=== PATIENT | male | born 1945 | race Caucasian/White ===

== ENCOUNTER 2018-04-21 23:05 | Observation (INO) | payer MEDICARE, BC ==
[2018-04-21] MEDS ORDERED: RX INFO: IV CONTRAST WAS GIVEN 1 EACH MISC MISCELLANE PRN (23:48)
[2018-04-21] MEDS ORDERED: SODIUM CHLORIDE 0.9% 1,000 ML IV STA (23:48)
--- NOTE | 2018-04-21 23:58 | ED ---
General Adult HPI - General Chief complaint: Upper Respiratory Infection Stated complaint: coughing up blood Time Seen by Provider: 04/21/18 23:41 Source: patient Mode of arrival: ambulatory Limitations: no limitations - History of Present Illness Initial comments: 72 years old male noticed hemoptysis today at suppertime then now it continued 9 :00 he was coughing he noticed more blood this time around he is on the Plavix and he has been coughing he denies any chest pain as such at night he denies any fever no chills no night sweats no night sweats no weight loss no exposure to anybody with a TB or any contagious diseases. He quit smoking 30 years ago - Related Data Home Medications Medication Instructions Recorded Confirmed ALPRAZolam [Xanax] 0.25 mg PO BID PRN 09/27/16 04/21/18 Atorvastatin [Lipitor] 10 mg PO DAILY 09/27/16 04/21/18 Calcium Polycarbophil [Fibercon] 625 mg PO DAILY 09/27/16 04/21/18 Clopidogrel [Plavix] 75 mg PO DAILY 09/27/16 04/21/18 Diltiazem Cd [Cardizem Cd] 120 mg PO DAILY 09/27/16 04/21/18 Garlic 1 tab PO DAILY 09/27/16 04/21/18 Ipratropium Nebulized [Atrovent 0.5 mg INHALATION RT-QID PRN 09/27/16 04/21/18 Nebulized] Levalbuterol Nebulized [Xopenex 1.25 mg INHALATION RT-QID PRN 09/27/16 04/21/18 Nebulized] Montelukast [Singulair] 10 mg PO DAILY 09/27/16 04/21/18 Niacin 500 mg PO BID 09/27/16 04/21/18 [place]-3 Fatty Acids/Fish Oil [Fish 1 cap PO DAILY 09/27/16 04/21/18 Oil 1,000 mg Softgel] Albuterol Inhaler [Ventolin Hfa 1 - 2 puff INHALATION RT-Q6H PRN 04/21/18 Inhaler] Ascorbic Acid [Vitamin C] 1,000 mg PO DAILY 04/21/18 04/21/18 Fluticasone/Salmeterol [Advair 1 inhalation PO BID 04/21/18 04/21/18 500-50 Diskus] Allergies Allergy/AdvReac Type Severity Reaction Status Date / Time aspirin Allergy Anaphylaxis Verified 04/21/18 23:31 ibuprofen Allergy Anaphylaxis Verified 04/21/18 23:31 influenza virus vaccine qs Allergy Unknown Verified 04/21/18 23:31 2016-17 (36 months up) [From Fluarix Quad 2878-6301 (PF)] Review of Systems ROS Statement: Those systems with pertinent positive or pertinent negative responses have been documented in the HPI. ROS Other: All systems not noted in ROS Statement are negative. Past Medical History Past Medical History: Asthma, Coronary Artery Disease (CAD), Cancer, Chest Pain / Angina, COPD, GERD/Reflux, Hyperlipidemia Additional Past Medical History / Comment(s): sarcoidosis, samtus triad asthma History of Any Multi-Drug Resistant Organisms: None Reported Past Surgical History: Orthopedic Surgery Additional Past Surgical History / Comment(s): right index, nasal , right lower lobe ectomy Past Psychological History: No Psychological Hx Reported Smoking Status: Former smoker Past Alcohol Use History: None Reported Past Drug Use History: None Reported General Exam - General Exam Comments Initial Comments: General: The patient is awake and alert, in no distress, and does not appear acutely ill. Skin: Skin is warm and dry and no rashes or lesions are noted. Eye: Pupils are equal, round and reactive to light, extra-ocular movements are intact; there is normal conjunctiva bilaterally. Ears, nose, mouth and throat: There are moist mucous membranes and no oral lesions. Neck: The neck is supple, there is no tenderness or JVD. Cardiovascular: There is a regular rate and rhythm. No murmur, rub or gallop is appreciated. Respiratory: To auscultation bilateral, noticed crackles at the bases bilateral Gastrointestinal: Soft, non-distended, non-tender abdomen without masses or organomegaly noted. There is no rebound or guarding present. Bowel sounds are unremarkable. Back: There is no tenderness to palpation in the midline. There is no obvious deformity. Musculoskeletal: Normal ROM, no tenderness, There is no pedal edema. There is no calf tenderness or swelling. No cords were appreciated. Neurological: CN II-XII intact, Cranial nerves III through XII are intact. There are no obvious motor or sensory deficits. Coordination appears grossly intact. Speech is normal. Psychiatric: Cooperative, appropriate mood & affect, normal judgment. Limitations: no limitations Course Vital Signs 04/21/18 04/21/18 04/22/18 23:09 23:21 01:04 Temperature 97.8 F Pulse Rate 67 63 Respiratory 18 18 18 Rate Blood Pressure 125/76 123/63 O2 Sat by Pulse 96 95 Oximetry Patient is reassessed at term 1 AM, EKG is unremarkable CBC, INR, troponin, comp his metabolic panel are within normal range his CT chest with IV contrast is pending considering his hemoptysis regardless ER to be admitted for pulmonary evaluation by pulmonary medicine EKG Findings - EKG Comments: EKG Findings:: EKG is normal sinus ventricular rate is 65 NH interval is 172 QRS duration is 88 QT/QTc is 46 02/26/2022 review of this EKG does not reveal any ST elevation or ST depression Medical Decision Making - Lab Data Result diagrams: 04/21/18 23:30 04/21/18 23:30 Lab Results 04/21/18 04/21/18 04/21/18 Range/Units 23:30 23:30 23:30 WBC 13.2 H (3.8-10.6) k/uL RBC 5.01 (4.30-5.90) m/uL Hgb 14.9 (13.0-17.5) gm/dL Hct 45.2 (39.0-53.0) % MCV 90.2 (80.0-100.0) fL MCH 29.8 (25.0-35.0) pg MCHC 33.1 (31.0-37.0) g/dL RDW 12.3 (11.5-15.5) % Plt Count 294 (150-450) k/uL Neutrophils % 50 % Lymphocytes % 31 % Monocytes % 11 % Eosinophils % 4 % Basophils % 1 % Neutrophils # 6.6 (1.3-7.7) k/uL Lymphocytes # 4.1 (1.0-4.8) k/uL Monocytes # 1.4 H (0-1.0) k/uL Eosinophils # 0.5 (0-0.7) k/uL Basophils # 0.1 (0-0.2) k/uL PT (9.0-12.0) sec INR (<1.2) APTT (22.0-30.0) sec Sodium 140 (137-145) mmol/L Potassium 4.4 (3.5-5.1) mmol/L Chloride 105 (98-107) mmol/L Carbon Dioxide 26 (22-30) mmol/L Anion Gap 9 mmol/L BUN 23 H (9-20) mg/dL Creatinine 0.90 (0.66-1.25) mg/dL Est GFR (CKD-EPI)AfAm >90 (>60 ml/min/1.73 sqM) Est GFR (CKD-EPI)NonAf 86 (>60 ml/min/1.73 sqM) Glucose 97 (74-99) mg/dL Calcium 9.4 (8.4-10.2) mg/dL Magnesium 2.0 (1.6-2.3) mg/dL Total Bilirubin 0.2 (0.2-1.3) mg/dL AST 27 (17-59) U/L ALT 38 (21-72) U/L Alkaline Phosphatase 63 (38-126) U/L Total Creatine Kinase 241 H (55-170) U/L CK-MB (CK-2) 3.6 H* (0.0-2.4) ng/mL CK-MB (CK-2) Rel Index 1.5 Troponin I <0.012 (0.000-0.034) ng/mL Total Protein 6.5 (6.3-8.2) g/dL Albumin 4.1 (3.5-5.0) g/dL 04/21/18 Range/Units 23:30 WBC (3.8-10.6) k/uL RBC (4.30-5.90) m/uL Hgb (13.0-17.5) gm/dL Hct (39.0-53.0) % MCV (80.0-100.0) fL MCH (25.0-35.0) pg MCHC (31.0-37.0) g/dL RDW (11.5-15.5) % Plt Count (150-450) k/uL Neutrophils % % Lymphocytes % % Monocytes % % Eosinophils % % Basophils % % Neutrophils # (1.3-7.7) k/uL Lymphocytes # (1.0-4.8) k/uL Monocytes # (0-1.0) k/uL Eosinophils # (0-0.7) k/uL Basophils # (0-0.2) k/uL PT 10.5 (9.0-12.0) sec INR 1.1 (<1.2) APTT 22.8 (22.0-30.0) sec Sodium (137-145) mmol/L Potassium (3.5-5.1) mmol/L Chloride (98-107) mmol/L Carbon Dioxide (22-30) mmol/L Anion Gap mmol/L BUN (9-20) mg/dL Creatinine (0.66-1.25) mg/dL Est GFR (CKD-EPI)AfAm (>60 ml/min/1.73 sqM) Est GFR (CKD-EPI)NonAf (>60 ml/min/1.73 sqM) Glucose (74-99) mg/dL Calcium (8.4-10.2) mg/dL Magnesium (1.6-2.3) mg/dL Total Bilirubin (0.2-1.3) mg/dL AST (17-59) U/L ALT (21-72) U/L Alkaline Phosphatase (38-126) U/L Total Creatine Kinase (55-170) U/L CK-MB (CK-2) (0.0-2.4) ng/mL CK-MB (CK-2) Rel Index Troponin I (0.000-0.034) ng/mL Total Protein (6.3-8.2) g/dL Albumin (3.5-5.0) g/dL Disposition Clinical Impression: Hemoptysis Disposition: ADMITTED IP TO THIS [facility] Condition: Good Referrals: Ghulam Ellis MD [Primary Care Provider] - 1-2 days
[2018-04-22 00:10] LABS: Basophils # (A) 0.1 k/uL (0-0.2); Basophils % (A) 1 %; Eosinophils # (A) 0.5 k/uL (0-0.7); Eosinophils % (A) 4 %; HCT 45.2 % (39.0-53.0); HGB 14.9 gm/dL (13.0-17.5); Lymphocytes # (A) 4.1 k/uL (1.0-4.8); Lymphocytes % (A) 31 %; MCH 29.8 pg (25.0-35.0); MCHC 33.1 g/dL (31.0-37.0); MCV 90.2 fL (80.0-100.0); Mean Platelet Volume 7.5; Monocytes # (A) 1.4 k/uL (0-1.0); Monocytes % (A) 11 %; Neutrophils # (A) 6.6 k/uL (1.3-7.7); Neutrophils % (A) 50 %; Platelet Count 294 k/uL (150-450); RBC 5.01 m/uL (4.30-5.90); RDW 12.3 % (11.5-15.5); WBC 13.2 k/uL (3.8-10.6)
[2018-04-22 00:20] LABS: INR 1.1 (<1.2); Partial Thromboplastin Time 22.8 sec (22.0-30.0); Prothrombin Time 10.5 sec (9.0-12.0)
[2018-04-22 00:31] LABS: ALT 38 U/L (21-72); AST 27 U/L (17-59); Albumin 4.1 g/dL (3.5-5.0); Alkaline Phosphatase 63 U/L (38-126); Anion Gap 9 mmol/L; Blood Urea Nitrogen 23 mg/dL (9-20); Calcium 9.4 mg/dL (8.4-10.2); Carbon Dioxide 26 mmol/L (22-30); Chloride 105 mmol/L (98-107); Glucose 97 mg/dL (74-99); Potassium 4.4 mmol/L (3.5-5.1); Sodium 140 mmol/L (137-145); Total Bilirubin 0.2 mg/dL (0.2-1.3); Total Protein 6.5 g/dL (6.3-8.2)
[2018-04-22 00:36] LABS: Creatine Kinase 241 U/L (55-170)
[2018-04-22 00:49] LABS: Troponin I <0.012 ng/mL (0.000-0.034)
[2018-04-22 00:58] LABS: Creatine Kinase MB 3.6 ng/mL (0.0-2.4)
--- NOTE | 2018-04-22 01:09 | CT ---
EXAMINATION TYPE: CT chest w con DATE OF EXAM: 04/22/2018 COMPARISON: NONE HISTORY: coughing up blood CT DLP: 522.40 mGycm Automated exposure control for dose reduction was used. CONTRAST: CT scan of the chest is performed with IV Contrast, patient injected with 100 mL of Isovue 300. FINDINGS: The lungs are clear of consolidation. There is some blunting of right costophrenic angle. There is no pleural effusion. There is mild reticular density at the left posterior lung base. There are multipl e paratracheal and bronchial lymph nodes. These measure up to 1.5 cm. There is no evidence of thoraci c aortic aneurysm or dissection. Heart size is normal. There is no pericardial effusion. There are ap parent surgical clips at the right pulmonary hilum. There is appears to be resection of a significant amount of the right lower lobe. There could be complete right lower lobectomy. There is spurring in the thoracic spine. There is mild anterior wedging of a midthoracic vertebra. This is seen at T9 and T8 with up to 15% loss of height. IMPRESSION: There is peritracheal and bronchial adenopathy. Right lower lobectomy. Mild pleural reac tion at the lateral right lung base. Calcified gallstones are noted. There are probably renal parapel lety cysts.
[2018-04-22] MEDS ORDERED: ACETAMINOPHEN TAB 325 MG TAB PO PRN (01:10)
[2018-04-22] MEDS ORDERED: NALOXONE 0.4 MG/ML 1 ML VIAL IV PRN (01:10)
[2018-04-22] MEDS ORDERED: ONDANSETRON 4 MG/2 ML VIAL IVP PRN (01:10)
[2018-04-22] MEDS ORDERED: ALPRAZolam 0.25 MG TAB PO PRN (01:14)
[2018-04-22] MEDS ORDERED: IPRATROPIUM 0.5 MG/2.5 ML NEBU INHALATION PRN (01:14)
[2018-04-22] MEDS ORDERED: ALBUTEROL NEBULIZED 2.5 MG/3 ML INHALATION PRN (01:14)
[2018-04-22] MEDS ORDERED: ALBUTEROL NEB (CONC) 2.5 MG/0.5 ML INHALATION PRN (01:14)
[2018-04-22 01:57] VITALS: BMI 29.5
[2018-04-22] MEDS: SYMBICORT 160-4.5 MCG INHALER INHALATION SCH ×2 (07:47→19:51)
[2018-04-22] MEDS: ATORVASTATIN 10 MG TAB PO SCH (08:08)
[2018-04-22] MEDS: ASCORBIC ACID 500 MG TAB PO SCH (08:08)
[2018-04-22] MEDS: DILTIAZEM CD 120 MG CAP.ER.24H PO SCH (08:08)
[2018-04-22] MEDS: NIACIN TR 500 MG CAPSULE.ER PO SCH ×2 (08:08→19:59)
[2018-04-22] MEDS: NON-FORMULARY DRUG (Garlic [Garlic] 1 TAB) PO SCH (08:08)
[2018-04-22] MEDS: MONTELUKAST 10 MG TAB PO SCH (08:08)
[2018-04-22] MEDS: CALCIUM POLYCARBOPHIL 625 MG TAB PO SCH (08:08)
[2018-04-22] MEDS: NON-FORMULARY DRUG (Omega-3 Fatty Acids/Fish Oil [Fish Oil 1,000 Mg Softgel] 1 CAP) PO SCH (08:09)
--- NOTE | 2018-04-22 14:36 | P.CNPUL ---
History of Present Illness Consult date: 04/22/18 Requesting physician: Tyshawn Jose Reason for consult: other Chief complaint: Hemoptysis History of present illness: Mr. Pan is a 72-year-old white male patient follows with MILY Kulkarni , in Dr. Ellis office, who presented to the emergency department on 04/21/2018 at 2353 with complaints of hemoptysis. At around 5:30 in the afternoon on 04/21 patient started coughing, and did a quarter size amount of bright red blood mixed with phlegm. Denies any chest pain, denied any shortness of breath , denied any fever or chills, denied chest congestion. Denied any weight loss, denied any exposure to any contagious diseases. He is an ex-smoker, he quit smoking 30 years ago, but smoked for 15 years of less than a pack a day prior to that. He is on Plavix, no other blood thinners. Other history includes aspirin-sensitive asthma, which has been under good control, and has not had an exacerbation in over a year. Was previously on Advair, however his insurance stopped paying for it and he had been off of it. His asthma has been under control despite that, patient is on Xopenex and Atrovent nebulized treatments, and he has inhaler. He sees Dr. Spencer for his history of mild intermittent asthma, he has a past medical history of sarcoidosis which has been inactive, history of lung cancer, likely non-small cell, with a right lower lobe resection [place] [address] Camargo. And the patient did not require any radiation or chemo following right lower lobe resection. Patient has a history of chronic sinusitis, hypertension, and history of peptic ulcer disease, with GI bleeding in 1990. His PFT from 10/09/2017 showed FEV1 of 57% of predicted, post bronchodilator response was FEV1 of 64% of predicted, DLCO was 93%. FEV1 to FVC ratio was 95%, and this was consistent with moderately severe obstructive airways disease with a possible restrictive defect. CT chest with contrast was completed, and showed lungs clear of consolidation, there were multiple paratracheal and bronchial lymph nodes measuring up to 1.5 cm, there was evidence of previous right lower lobe resection with surgical clips at the right pulmonary hilum. Vital signs have been stable, patient has been afebrile , he is on room air with a pulse ox of 95%, normotensive. Heart rate is controlled in the 60s BPM. EKG showed normal sinus rhythm. Lab work showed a CBC of 13.9, hemoglobin is 14.9, coagulation profile was within normal limits, electrolytes were normal, B1 is 23, creatinine was 0.90. LFTs were normal, total CK was 241, CK-MB was 3.6, troponins was negative 1, influenza screen was negative. Patient was seen in the observation unit, and were consulted in regards to hemoptysis, and patient is calm and comfortable, denies any acute distress. He had a small amount of hemoptysis this morning, sizable quarter, with old dark blood. Review of Systems All systems: negative Constitutional: Denies chills, Denies fever Eyes: denies blurred vision, denies pain Ears, nose, mouth and throat: Denies headache, Denies sore throat Cardiovascular: Denies chest pain, Denies shortness of breath Respiratory: Reports cough with sputum, Reports hemoptysis, Denies cough Gastrointestinal: Denies abdominal pain, Denies diarrhea, Denies nausea, Denies vomiting Musculoskeletal: Denies myalgias Integumentary: Denies pruritus, Denies rash Neurological: Denies numbness, Denies weakness Psychiatric: Denies anxiety, Denies depression Endocrine: Denies fatigue, Denies weight change Past Medical History Past Medical History: Asthma, Coronary Artery Disease (CAD), Cancer, Chest Pain / Angina, COPD, GERD/Reflux, GI Bleed, Hyperlipidemia, Rheumatoid Arthritis (RA) Additional Past Medical History / Comment(s): sarcoidosis, Samter's triad asthma , bleeding ulcer 1990 History of Any Multi-Drug Resistant Organisms: None Reported Past Surgical History: Heart Catheterization, Orthopedic Surgery Additional Past Surgical History / Comment(s): right index, nasal , right lower lobe ectomy, heart cath 2009-no blockages Past Anesthesia/Blood Transfusion Reactions: No Reported Reaction Past Psychological History: No Psychological Hx Reported Smoking Status: Former smoker Past Alcohol Use History: None Reported Past Drug Use History: None Reported - Past Family History Father Family Medical History: Diabetes Mellitus Mother Family Medical History: Coronary Artery Disease (CAD) Medications and Allergies Home Medications Medication Instructions Recorded Confirmed Type ALPRAZolam [Xanax] 0.25 mg PO BID PRN 09/27/16 04/22/18 History Atorvastatin [Lipitor] 10 mg PO DAILY 09/27/16 04/22/18 History Calcium Polycarbophil [Fibercon] 625 mg PO DAILY 09/27/16 04/22/18 History Clopidogrel [Plavix] 75 mg PO DAILY 09/27/16 04/22/18 History Diltiazem Cd [Cardizem Cd] 120 mg PO DAILY 09/27/16 04/22/18 History Garlic 1 tab PO DAILY 09/27/16 04/22/18 History Ipratropium Nebulized [Atrovent 0.5 mg INHALATION RT-QID PRN 09/27/16 04/22/18 History Nebulized] Levalbuterol Nebulized [Xopenex 1.25 mg INHALATION RT-QID PRN 09/27/16 04/22/18 History Nebulized] Montelukast [Singulair] 10 mg PO DAILY 09/27/16 04/22/18 History Niacin 500 mg PO BID 09/27/16 04/22/18 History [place]-3 Fatty Acids/Fish Oil [Fish 1 cap PO DAILY 09/27/16 04/22/18 History Oil 1,000 mg Softgel] Albuterol Inhaler [Ventolin Hfa 1 - 2 puff INHALATION RT-Q6H PRN 04/21/18 History Inhaler] Ascorbic Acid [Vitamin C] 1,000 mg PO DAILY 04/21/18 04/22/18 History Fluticasone/Salmeterol [Advair 1 inhalation PO BID 04/21/18 04/22/18 History 500-50 Diskus] Allergies Allergy/AdvReac Type Severity Reaction Status Date / Time aspirin Allergy Anaphylaxis Verified 04/21/18 23:31 ibuprofen Allergy Anaphylaxis Verified 04/21/18 23:31 influenza virus vaccine qs Allergy Unknown Verified 04/21/18 23:31 2015- (36 months up) [From Fluarix Quad 3996-6840 (PF)] Physical Exam Vitals: Vital Signs Temp Pulse Pulse Resp BP BP Pulse Ox 04/22/18 11:19 16 04/22/18 08:00 16 04/22/18 07:15 97.8 F 61 18 108/70 95 04/22/18 04:00 62 18 04/22/18 02:20 68 18 04/22/18 01:52 97.7 F 61 16 128/76 97 04/22/18 01:04 63 18 123/63 95 04/21/18 23:21 18 04/21/18 23:09 97.8 F 67 18 125/76 96 Intake and Output 04/21/18 04/22/18 04/22/18 22:59 06:59 14:59 Intake Total 800 420 Balance 800 420 Intake: Intake, IV Titration 600 Amount Sodium Chloride 0.9% 1, 600 000 ml @ 100 mls/hr IV . Q10H STA Rx#:[id number] Oral 200 420 Other: Voiding Method Toilet # Voids 2 Weight 96.1 kg GENERAL EXAM: Alert, pleasant, 72-year-old white male, comfortable in no apparent distress. HEAD: Normocephalic/atraumatic. EYES: Normal reaction of pupils, equal size. Conjunctiva pink, sclera white. NOSE: Clear with pink turbinates. THROAT: No erythema or exudates. NECK: No masses, no JVD, no thyroid enlargement, no adenopathy. CHEST: No chest wall deformity. Symmetrical expansion. LUNGS: Equal air entry with bibasilar crackles, no wheezing noted CVS: Regular rate and rhythm, normal S1 and S2, no gallops, no murmurs, no rubs ABDOMEN: Soft, nontender. No hepatosplenomegaly, normal bowel sounds, no guarding or rigidity. EXTREMITIES: No clubbing, no edema, no cyanosis, 2+ pulses and upper and lower extremities. MUSCULOSKELETAL: Muscle strength and tone normal. SPINE: No scoliosis or deformity SKIN: No rashes CENTRAL NERVOUS SYSTEM: Alert and oriented -3. No focal deficits, tone is normal in all 4 extremities. PSYCHIATRIC: Alert and oriented -3. Appropriate affect. Intact judgment and insight. Results - Laboratory Findings CBC and BMP: 04/21/18 23:30 04/21/18 23:30 PT/INR, D-dimer PT 10.5 sec (9.0-12.0) 04/21/18 23:30 INR 1.1 (<1.2) 04/21/18 23:30 Abnormal lab findings: Abnormal Labs 04/21/18 04/21/18 04/21/18 23:30 23:30 23:30 WBC 13.2 H Monocytes # 1.4 H BUN 23 H Total Creatine Kinase 241 H CK-MB (CK-2) 3.6 H* - Diagnostic Findings Chest x-ray: report reviewed, image reviewed Additional studies: EKG was reviewed Assessment and Plan Plan: Assessment: #1. Hemoptysis, under investigation. Patient reports small amount of bright red colored sputum size of a dime prior to admission, and again today which was dark colored, this could be related to bronchial wall inflammation, or vigorous coughing which could have caused a small blood vessel to burst and bleed in the airways. CT chest did show multiple paratracheal and bronchial adenopathy measuring up to 1.5 cm, no lung masses were seen. This could be followed on an outpatient basis with the repeat CT chest. Patient denies any other constitutional symptoms, no weight loss, no persistent cough, no chest wall tenderness, no dyspnea, no night sweats, no fever, no chills #2. History of mild intermittent asthma, under good control. This is aspirin sensitive asthma #3. History of sarcoidosis, inactive #4. History of lung cancer, likely non-small cell lung cancer, the details are not available, the patient had right lower lobe resection [place] [address] Camargo #5. History of chronic sinusitis #6. Hypertension #7. Peptic ulcer disease, patient had a bleeding ulcer in 1990 #8. History of remote nicotine dependence, patient quit 30 years ago, and smoked for a period of 15 years of less than a pack a day Plan: Patient was given an option to proceed with a bronchoscopy for inspection of airways, possibly tomorrow. Another option would be to continue surveillance of the tracheal and bronchial adenopathy with the repeat CT chest on outpatient basis always the hemoptysis is not recurring or intensifying. The amount of hemoptysis was small, it could possibly be related to forceful coughing and break of one of the blood vessels in the airways, or from the bronchial inflammation. We will start the patient on IV Solu-Medrol, and Zithromax. Continue monitoring for recurrence of hemoptysis, or worsening of his symptoms, and for now patient is stable, denies any dyspnea, denies any chest pain, vitals are stable. This was discussed with the patient, who would like to wait with the bronchoscopy for now, and treat medically for now as long as his symptoms are not worsening. I performed a history & physical examination of the patient and discussed their management with my nurse practitioner, Angelina Hmyan. I reviewed the nurse practitioner's note and agree with the documented findings and plan of care. Lung sounds are positive for coarse crackles in bilateral bases. The findings and the impression was discussed with the patient. I attest to the documentation by the nurse practitioner. Time with Patient: Greater than 30
--- NOTE | 2018-04-22 14:48 | P.HPIM ---
History of Present Illness 72-year-old gentleman with history of lung cancer in the past with right lower lobectomy came in with comments of hemoptysis shortness of breath patient up on exam has minimal wheezing patient does have history of COPD patient is being treated for bronchitis and patient is a pleasantly and azithromycin was evaluated by pulmonary. Patient does have FEV1 of 64%. Patient takes Plavix at home. Patient does not have any cerebrovascular or coronary vascular disease may not need any antiplatelet therapy at this time. Patient is also on systemic steroids which was started by pulmonology. Patient does have paratracheal lymphadenopathy on the CAT scan which will need a repeat CAT scan as an outpatient that will be followed by pulmonology as an as an outpatient. Patient's hemoptysis improved. Patient is much less short of breath Review of Systems REVIEW OF SYSTEMS: CONSTITUTIONAL: No fever, no malaise, no fatigue. HEENT: No recent visual problems or hearing problems. Denied any sore throat. CARDIOVASCULAR: No chest pain, orthopnea, PND, no palpitations, no syncope. PULMONARY: Hemoptysis as mentioned above GASTROINTESTINAL: No diarrhea, no nausea, no vomiting, no abdominal pain. Normoactive bowel sounds. NEUROLOGICAL: No headaches, no weakness, no numbness. HEMATOLOGICAL: Denies any bleeding or petechiae. GENITOURINARY: Denies any burning micturition, frequency, or urgency. MUSCULOSKELETAL/RHEUMATOLOGICAL: Denies any joint pain, swelling, or any muscle pain. ENDOCRINE: Denies any polyuria or polydipsia. The rest of the 14-point review of systems is negative. Past Medical History Past Medical History: Asthma, Coronary Artery Disease (CAD), Cancer, Chest Pain / Angina, COPD, GERD/Reflux, GI Bleed, Hyperlipidemia, Rheumatoid Arthritis (RA) Additional Past Medical History / Comment(s): sarcoidosis, Samter's triad asthma , bleeding ulcer 1990 History of Any Multi-Drug Resistant Organisms: None Reported Past Surgical History: Heart Catheterization, Orthopedic Surgery Additional Past Surgical History / Comment(s): right index, nasal , right lower lobe ectomy, heart cath 2009-no blockages Past Anesthesia/Blood Transfusion Reactions: No Reported Reaction Past Psychological History: No Psychological Hx Reported Smoking Status: Former smoker Past Alcohol Use History: None Reported Past Drug Use History: None Reported - Past Family History Father Family Medical History: Diabetes Mellitus Mother Family Medical History: Coronary Artery Disease (CAD) Medications and Allergies Home Medications Medication Instructions Recorded Confirmed Type ALPRAZolam [Xanax] 0.25 mg PO BID PRN 09/27/16 04/22/18 History Atorvastatin [Lipitor] 10 mg PO DAILY 09/27/16 04/22/18 History Calcium Polycarbophil [Fibercon] 625 mg PO DAILY 09/27/16 04/22/18 History Clopidogrel [Plavix] 75 mg PO DAILY 09/27/16 04/22/18 History Diltiazem Cd [Cardizem Cd] 120 mg PO DAILY 09/27/16 04/22/18 History Garlic 1 tab PO DAILY 09/27/16 04/22/18 History Ipratropium Nebulized [Atrovent 0.5 mg INHALATION RT-QID PRN 09/27/16 04/22/18 History Nebulized] Levalbuterol Nebulized [Xopenex 1.25 mg INHALATION RT-QID PRN 09/27/16 04/22/18 History Nebulized] Montelukast [Singulair] 10 mg PO DAILY 09/27/16 04/22/18 History Niacin 500 mg PO BID 09/27/16 04/22/18 History [place]-3 Fatty Acids/Fish Oil [Fish 1 cap PO DAILY 09/27/16 04/22/18 History Oil 1,000 mg Softgel] Albuterol Inhaler [Ventolin Hfa 1 - 2 puff INHALATION RT-Q6H PRN 04/21/18 History Inhaler] Ascorbic Acid [Vitamin C] 1,000 mg PO DAILY 04/21/18 04/22/18 History Fluticasone/Salmeterol [Advair 1 inhalation PO BID 04/21/18 04/22/18 History 500-50 Diskus] Allergies Allergy/AdvReac Type Severity Reaction Status Date / Time aspirin Allergy Anaphylaxis Verified 04/21/18 23:31 ibuprofen Allergy Anaphylaxis Verified 04/21/18 23:31 influenza virus vaccine qs Allergy Unknown Verified 04/21/18 23:31 2015- (36 months up) [From Fluarix Quad 3562-5362 (PF)] Physical Exam Vitals: Vital Signs Temp Pulse Pulse Resp BP BP Pulse Ox 04/22/18 11:19 16 04/22/18 08:00 16 04/22/18 07:15 97.8 F 61 18 108/70 95 04/22/18 04:00 62 18 04/22/18 02:20 68 18 04/22/18 01:52 97.7 F 61 16 128/76 97 04/22/18 01:04 63 18 123/63 95 04/21/18 23:21 18 04/21/18 23:09 97.8 F 67 18 125/76 96 Intake and Output 04/21/18 04/22/18 04/22/18 22:59 06:59 14:59 Intake Total 800 420 Balance 800 420 Intake: Intake, IV Titration 600 Amount Sodium Chloride 0.9% 1, 600 000 ml @ 100 mls/hr IV . Q10H STA Rx#:[id number] Oral 200 420 Other: Voiding Method Toilet # Voids 2 Weight 96.1 kg PHYSICAL EXAMINATION: GENERAL: The patient is alert and oriented x3, not in any acute distress. Well developed, well nourished. HEENT: Pupils are round and equally reacting to light. EOMI. No scleral icterus. No conjunctival pallor. Normocephalic, atraumatic. No pharyngeal erythema. No thyromegaly. CARDIOVASCULAR: S1 and S2 present. No murmurs, rubs, or gallops. PULMONARY: Minimal expiratory wheezing, decreased air entry into bilateral lung chi. ABDOMEN: Soft, nontender, nondistended, normoactive bowel sounds. No palpable organomegaly. MUSCULOSKELETAL: No joint swelling or deformity. EXTREMITIES: No cyanosis, clubbing, or pedal edema. NEUROLOGICAL: Gross neurological examination did not reveal any focal deficits. SKIN: No rashes. Results CBC & Chem 7: 04/21/18 23:30 04/21/18 23:30 Labs: Abnormal Lab Results - Last 24 Hours (Table) 04/21/18 04/21/18 04/21/18 Range/Units 23:30 23:30 23:30 WBC 13.2 H (3.8-10.6) k/uL Monocytes # 1.4 H (0-1.0) k/uL BUN 23 H (9-20) mg/dL Total Creatine Kinase 241 H (55-170) U/L CK-MB (CK-2) 3.6 H* (0.0-2.4) ng/mL Thrombosis Risk Factor Assmnt - Choose All That Apply Each Risk Factor Represents 2 Points: Age 61-74 years Thrombosis Risk Factor Assessment Total Risk Factor Score: 2 Thrombosis Risk Factor Assessment Level: Low Risk Assessment and Plan Plan: -Hemoptysis probably secondary to bronchitis patient does have paratracheal lymphadenopathy which will be evaluated further as an outpatient with repeat CAT scan of the chest pulmonology valid the patient continue with the systemic strides antibiotics -Chronic intermittent asthma: Aspirin sensitive asthma -History of sarcoidosis -History of lung cancer non-small cell status post right lower lobectomy so far in remission. -Chronic sinusitis -Hypertension -Peptic ulcer disease
[2018-04-22] MEDS: methylPREDNISolone SOD SUCCI 125 MG/2 ML VIAL IV SCH ×2 (14:55→17:04)
[2018-04-22] MEDS: AZITHROMYCIN 500 MG TAB PO SCH (14:55)
[2018-04-22 16:01] VITALS: RESP 18; TEMP 97.4
[2018-04-23] MEDS: methylPREDNISolone SOD SUCCI 125 MG/2 ML VIAL IV SCH ×3 (00:15→11:48)
[2018-04-23 05:51] VITALS: BP 142/82; PULSE 106
[2018-04-23 07:13] LABS: Basophils % (A) 0 %; Eosinophils % (A) 0 %; HCT 48.4 % (39.0-53.0); HGB 15.9 gm/dL (13.0-17.5); Lymphocytes # (A) 1.6 k/uL (1.0-4.8); Lymphocytes % (A) 9 %; MCHC 32.8 g/dL (31.0-37.0); MCV 91.4 fL (80.0-100.0); Mean Platelet Volume 7.8; Monocytes # (A) 0.3 k/uL (0-1.0); Monocytes % (A) 2 %; Neutrophils # (A) 15.6 k/uL (1.3-7.7); Neutrophils % (A) 89 %; Platelet Count 325 k/uL (150-450); RDW 12.7 % (11.5-15.5); WBC 17.6 k/uL (3.8-10.6)
[2018-04-23] MEDS: SYMBICORT 160-4.5 MCG INHALER INHALATION SCH (08:28)
[2018-04-23] MEDS: NIACIN TR 500 MG CAPSULE.ER PO SCH (09:31)
[2018-04-23] MEDS: ASCORBIC ACID 500 MG TAB PO SCH (09:31)
[2018-04-23] MEDS: AZITHROMYCIN 500 MG TAB PO SCH (09:31)
[2018-04-23] MEDS: NON-FORMULARY DRUG (Omega-3 Fatty Acids/Fish Oil [Fish Oil 1,000 Mg Softgel] 1 CAP) PO SCH (09:31)
[2018-04-23] MEDS: CALCIUM POLYCARBOPHIL 625 MG TAB PO SCH (09:31)
[2018-04-23] MEDS: ATORVASTATIN 10 MG TAB PO SCH (09:31)
[2018-04-23] MEDS: MONTELUKAST 10 MG TAB PO SCH (09:31)
[2018-04-23] MEDS: NON-FORMULARY DRUG (Garlic [Garlic] 1 TAB) PO SCH (09:31)
[2018-04-23] MEDS: DILTIAZEM CD 120 MG CAP.ER.24H PO SCH (09:31)
--- NOTE | 2018-04-23 10:32 | P.DS ---
Providers Date of admission: 04/22/18 01:10 Attending physician: Tyshawn Jose Consults: 04/22/18 01:10 Consult Physician Stat Consulting Provider: Mary Jo Andrews Reason/Comments: hemoptysis Do you want consulting provider notified?: Yes Primary care physician: Ghulam Caleb [facility] Course: Patient was admitted secondary to hemoptysis which is believed secondary to bronchitis and patient does have some COPD exacerbation the patient is cleared by a pulmonary patient will be discharged today he still has some wheeze but the clinically looks okay. Patient is not wearing oxygen at this time. Patient does have paratracheal lymphadenopathy which will be followed as an outpatient by pulmonary. Patient does have right lower pulmonary lobectomy for his previous history of non-small cell lung cancer. His hemoptysis resolved. If hemoptysis recurs patient was asked to hold off his Plavix. Patient does not have any history of cigarettes per accident, coronary vascular disease or peripheral vascular disease history. PHYSICAL EXAMINATION: GENERAL: The patient is alert and oriented x3, not in any acute distress. Well developed, well nourished. HEENT: Pupils are round and equally reacting to light. EOMI. No scleral icterus. No conjunctival pallor. Normocephalic, atraumatic. No pharyngeal erythema. No thyromegaly. CARDIOVASCULAR: S1 and S2 present. No murmurs, rubs, or gallops. PULMONARY: Minimal expiratory wheezing, decreased air entry into bilateral lung chi. ABDOMEN: Soft, nontender, nondistended, normoactive bowel sounds. No palpable organomegaly. MUSCULOSKELETAL: No joint swelling or deformity. EXTREMITIES: No cyanosis, clubbing, or pedal edema. NEUROLOGICAL: Gross neurological examination did not reveal any focal deficits. SKIN: No rashes. Assessment and Plan Plan: -Hemoptysis probably secondary to bronchitis patient does have paratracheal lymphadenopathy which will be evaluated further as an outpatient with repeat CAT scan of the chest pulmonology evaluated the patient. -Chronic intermittent asthma: Aspirin sensitive asthma -History of sarcoidosis -History of lung cancer non-small cell status post right lower lobectomy so far in remission. -Chronic sinusitis -Hypertension -Peptic ulcer disease Patient Condition at Discharge: Good Plan - Discharge Summary Discharge Rx Participant: No New Discharge Prescriptions: New Azithromycin [Zithromax] 500 mg PO DAILY #4 tab predniSONE 10 mg PO DAILY #30 tab Continue Ipratropium Nebulized [Atrovent Nebulized] 0.5 mg INHALATION RT-QID PRN PRN Reason: Shortness Of Breath Levalbuterol Nebulized [Xopenex Nebulized] 1.25 mg INHALATION RT-QID PRN PRN Reason: breathing Calcium Polycarbophil [Fibercon] 625 mg PO DAILY Diltiazem Cd [Cardizem CD] 120 mg PO DAILY Clopidogrel [Plavix] 75 mg PO DAILY ALPRAZolam [Xanax] 0.25 mg PO BID PRN PRN Reason: Anxiety Montelukast [Singulair] 10 mg PO DAILY Atorvastatin [Lipitor] 10 mg PO DAILY [place]-3 Fatty Acids/Fish Oil [Fish Oil 1,000 mg Softgel] 1 cap PO DAILY Niacin 500 mg PO BID Garlic 1 tab PO DAILY Fluticasone/Salmeterol [Advair 500-50 Diskus] 1 inhalation PO BID Albuterol Inhaler [Ventolin Hfa Inhaler] 1 - 2 puff INHALATION RT-Q6H PRN PRN Reason: Shortness Of Breath Ascorbic Acid [Vitamin C] 1,000 mg PO DAILY Discharge Medication List ALPRAZolam [Xanax] 0.25 mg PO BID PRN 09/27/16 [History] Atorvastatin [Lipitor] 10 mg PO DAILY 09/27/16 [History] Calcium Polycarbophil [Fibercon] 625 mg PO DAILY 09/27/16 [History] Clopidogrel [Plavix] 75 mg PO DAILY 09/27/16 [History] Diltiazem Cd [Cardizem CD] 120 mg PO DAILY 09/27/16 [History] Garlic 1 tab PO DAILY 09/27/16 [History] Ipratropium Nebulized [Atrovent Nebulized] 0.5 mg INHALATION RT-QID PRN [History] Levalbuterol Nebulized [Xopenex Nebulized] 1.25 mg INHALATION RT-QID PRN [History] Montelukast [Singulair] 10 mg PO DAILY 09/27/16 [History] Niacin 500 mg PO BID 09/27/16 [History] [place]-3 Fatty Acids/Fish Oil [Fish Oil 1,000 mg Softgel] 1 cap PO DAILY [History] Albuterol Inhaler [Ventolin Hfa Inhaler] 1 - 2 puff INHALATION RT-Q6H PRN [History] Ascorbic Acid [Vitamin C] 1,000 mg PO DAILY 04/21/18 [History] Fluticasone/Salmeterol [Advair 500-50 Diskus] 1 inhalation PO BID 04/21/18 [ History] Azithromycin [Zithromax] 500 mg PO DAILY #4 tab 04/23/18 [Rx] predniSONE 10 mg PO DAILY #30 tab 04/23/18 [Rx] Follow up Appointment(s)/Referral(s): Ghulam Ellis MD [Primary Care Provider] - 3 Days Discharge Disposition: HOME SELF-CARE
--- NOTE | 2018-04-23 10:49 | P.PN ---
Subjective Progress Note Date: 04/23/18 Principal diagnosis: Hemoptysis, likely related to bronchial inflammation Mr. Pan is a 72-year-old white male patient follows with MILY Kulkarni , in Dr. Ellis office, who presented to the emergency department on 04/21/2018 at 2353 with complaints of hemoptysis. At around 5:30 in the afternoon on 04/21 patient started coughing, and did a quarter size amount of bright red blood mixed with phlegm. Denies any chest pain, denied any shortness of breath , denied any fever or chills, denied chest congestion. Denied any weight loss, denied any exposure to any contagious diseases. He is an ex-smoker, he quit smoking 30 years ago, but smoked for 15 years of less than a pack a day prior to that. He is on Plavix, no other blood thinners. Other history includes aspirin-sensitive asthma, which has been under good control, and has not had an exacerbation in over a year. Was previously on Advair, however his insurance stopped paying for it and he had been off of it. His asthma has been under control despite that, patient is on Xopenex and Atrovent nebulized treatments, and he has inhaler. He sees Dr. Spencer for his history of mild intermittent asthma, he has a past medical history of sarcoidosis which has been inactive, history of lung cancer, likely non-small cell, with a right lower lobe resection [place] [address] Camargo. And the patient did not require any radiation or chemo following right lower lobe resection. Patient has a history of chronic sinusitis, hypertension, and history of peptic ulcer disease, with GI bleeding in 1990. His PFT from 10/09/2017 showed FEV1 of 57% of predicted, post bronchodilator response was FEV1 of 64% of predicted, DLCO was 93%. FEV1 to FVC ratio was 95%, and this was consistent with moderately severe obstructive airways disease with a possible restrictive defect. CT chest with contrast was completed, and showed lungs clear of consolidation, there were multiple paratracheal and bronchial lymph nodes measuring up to 1.5 cm, there was evidence of previous right lower lobe resection with surgical clips at the right pulmonary hilum. Vital signs have been stable, patient has been afebrile , he is on room air with a pulse ox of 95%, normotensive. Heart rate is controlled in the 60s BPM. EKG showed normal sinus rhythm. Lab work showed a CBC of 13.9, hemoglobin is 14.9, coagulation profile was within normal limits, electrolytes were normal, B1 is 23, creatinine was 0.90. LFTs were normal, total CK was 241, CK-MB was 3.6, troponins was negative 1, influenza screen was negative. Patient was seen in the observation unit, and were consulted in regards to hemoptysis, and patient is calm and comfortable, denies any acute distress. He had a small amount of hemoptysis this morning, sizable quarter, with old dark blood. On 04/23/2018 patient seen again in follow-up on medical surgical floor. He had another couple of small bloody specks in his phlegm yesterday in the afternoon, nothing since. Vital signs are stable, patient states his sinuses are less congested. No chest congestion, no no cough. Remainder pulse ox is 94 %, yesterday we started patient on IV steroids, and antibiotics. And patient is feeling better today, with no recurrence of his hemoptysis. Pulmonary standpoint patient is stable for discharge home today Objective - Vital Signs Vital signs: Vital Signs Temp 97.4 F L 04/23/18 05:50 Pulse 106 H 04/23/18 08:00 Resp 18 04/23/18 08:00 BP 142/82 04/23/18 05:50 Pulse Ox 94 L 04/23/18 05:50 Intake & Output 04/22/18 04/23/18 04/23/18 18:59 06:59 18:59 Intake Total 820 480 Balance 820 480 Weight 96.1 kg Intake: Oral 420 480 Other 400 Other: Voiding Method Toilet Toilet Toilet # Voids 1 1 - Exam GENERAL EXAM: Alert, pleasant, 72-year-old white male, comfortable in no apparent distress. HEAD: Normocephalic/atraumatic. EYES: Normal reaction of pupils, equal size. Conjunctiva pink, sclera white. NOSE: Clear with pink turbinates. THROAT: No erythema or exudates. NECK: No masses, no JVD, no thyroid enlargement, no adenopathy. CHEST: No chest wall deformity. Symmetrical expansion. LUNGS: Equal air entry with bibasilar crackles, no wheezing noted CVS: Regular rate and rhythm, normal S1 and S2, no gallops, no murmurs, no rubs ABDOMEN: Soft, nontender. No hepatosplenomegaly, normal bowel sounds, no guarding or rigidity. EXTREMITIES: No clubbing, no edema, no cyanosis, 2+ pulses and upper and lower extremities. MUSCULOSKELETAL: Muscle strength and tone normal. SPINE: No scoliosis or deformity SKIN: No rashes CENTRAL NERVOUS SYSTEM: Alert and oriented -3. No focal deficits, tone is normal in all 4 extremities. PSYCHIATRIC: Alert and oriented -3. Appropriate affect. Intact judgment and insight. - Labs CBC & Chem 7: 04/23/18 06:13 04/21/18 23:30 Labs: Abnormal Lab Results - Last 24 Hours (Table) 04/23/18 Range/Units 06:13 WBC 17.6 H (3.8-10.6) k/uL Neutrophils # 15.6 H (1.3-7.7) k/uL Assessment and Plan Plan: Assessment: #1. Hemoptysis, under investigation. Patient reports small amount of bright red colored sputum size of a dime prior to admission, and again today which was dark colored, this could be related to bronchial wall inflammation, or vigorous coughing which could have caused a small blood vessel to burst and bleed in the airways. CT chest did show multiple paratracheal and bronchial adenopathy measuring up to 1.5 cm, no lung masses were seen. This could be followed on an outpatient basis with the repeat CT chest. Patient denies any other constitutional symptoms, no weight loss, no persistent cough, no chest wall tenderness, no dyspnea, no night sweats, no fever, no chills #2. History of mild intermittent asthma, under good control. This is aspirin sensitive asthma #3. History of sarcoidosis, inactive #4. History of lung cancer, likely non-small cell lung cancer, the details are not available, the patient had right lower lobe resection [place] [address] Camargo #5. History of chronic sinusitis #6. Hypertension #7. Peptic ulcer disease, patient had a bleeding ulcer in 1990 #8. History of remote nicotine dependence, patient quit 30 years ago, and smoked for a period of 15 years of less than a pack a day Plan: Patient has received IV Solu-Medrol, and Zithromax, and he reports feeling less sinus congestion, no coughing, he only had a couple more specks of blood in his phlegm yesterday in the afternoon, nothing since then. Vital signs are stable. Patient deferred bronchoscopy for now. He wants to continue watching for recurrence of his symptoms, and follow-up on an outpatient basis for his paratracheal and bronchial nodules. From pulmonary standpoint she is stable for discharge home today, follow up with Dr. Adhikari in the office next week, as Dr. Spencer will be rounding in the hospital. I performed a history & physical examination of the patient and discussed their management with my nurse practitioner, Angelina Hyman. I reviewed the nurse practitioner's note and agree with the documented findings and plan of care. Lung sounds are positive for a few scattered rales at the bases. The findings and the impression was discussed with the patient. I attest to the documentation by the nurse practitioner. Time with Patient: Less than 30
== END 2018-04-23 13:03 | disposition home or self-care (01) ==
LOC: EC 23:05 → 3OBS 04-22 01:10 → 5MS5E 04-22 15:34
PROVIDERS: ADMIT Hospitalist; ATTEND Hospitalist
DX: R04.2 Hemoptysis (principal); R59.1 Generalized enlarged lymph nodes; J45.20 Mild intermittent asthma, uncomplicated; J32.9 Chronic sinusitis, unspecified; K21.9 Gastro-esophageal reflux disease without esophagitis; E78.5 Hyperlipidemia, unspecified; J45.998 Other asthma; J44.1 Chronic obstructive pulmonary disease with (acute) exacerbation; D86.9 Sarcoidosis, unspecified; K27.9 Peptic ulcer, site unspecified, unspecified as acute or chronic, without hemorrhage or perforation; I25.10 Atherosclerotic heart disease of native coronary artery without angina pectoris; I10 Essential (primary) hypertension; M06.9 Rheumatoid arthritis, unspecified; Z79.02 Long term (current) use of antithrombotics/antiplatelets; Z87.891 Personal history of nicotine dependence; Z79.899 Other long term (current) drug therapy; Z79.51 Long term (current) use of inhaled steroids; Z88.6 Allergy status to analgesic agent; Z88.7 Allergy status to serum and vaccine; Z88.8 Allergy status to other drugs, medicaments and biological substances; Z85.118 Personal history of other malignant neoplasm of bronchus and lung; Z87.19 Personal history of other diseases of the digestive system; Z83.3 Family history of diabetes mellitus
CPT/HCPCS: 99285 ×2; 96361 ×4; 96376 ×2; 96374; 36415; 94640 ×2; 93005; 80053; 82550; 82553; 83735; 84484; 85025 ×2; 85610; 85730; 87502; 87503; 71260; G0378 ×2; J2930 ×2; Q9967